=== PATIENT | male | born 1965 | race Caucasian/White ===

== ENCOUNTER → 2023-10-24 | Outpatient (REF) ==
[~2023-10-24] MED LIST: BAYE81TA10 PO; COUM2.5T17 PO; FISH1000 PO; GLUCTAB7 PO; LYRI75CA PO; MULT1TAB11 PO; OXYC-141 PO; PERC5TAB12 PO; TRAM50TA2 PO; TYLE325T5 PO
== END ==
LOC: M PLAIMG 12:35
PROVIDERS: ATTEND Nurse Practitioner Family
DX: M25.562 Pain in left knee (principal)